=== PATIENT | male | born 1985 | race Two or more races ===

== ENCOUNTER 2017-12-08 05:12 | Emergency (ER) | payer OTHER ==
[2017-12-08 05:28] VITALS: BP 113/65; PULSE 75; TEMP 98.3; BMI 24.3
--- NOTE | 2017-12-08 05:41 | PDOC ---
History of Present Illness - General Chief Complaint: Rash Stated Complaint: RASH Time Seen by Provider: 12/08/17 05:27 - History of Present Illness Initial Comments: 12/08/17 05:41 32 yo M with no significant pmh who p/w rash. Patient with progressive widespread, utricarial, pruitic rash on torso, and BL UE and LE x 2 days. Spares palms/soles, with little face involvement. Also endorses dry, non productive cough x 3 days, and conjunctiva redness, and BL yellow discharge. Patient recently returned from [facility] 2 days ago and reports symptom onset following arrival to [place]. Recently seen at [facility] earlier this evening and prescribed oral Prednisone, Tobramyicn eye drops, and topical skin ointment. He denies recent changes in emollients, skin care, soaps, body washes, shampoo, bedding, clothing, detergents. Denies recent hiking, camping, outdoor activity. Denies F/C, N/V, vision change, dysphagia, hoarseness, neck swelling, tongue swelling, mucosal itching, wheezing, leg swelling/pain, CP, SOB, abdominal pain , diarrhea, constipation, BPR, urinary complaints, weakness, lightheadedness, sensory changes. PMHx: as noted above ROS: as noted above SHx: Denies Etoh, tobacco, or IVDA. Denies h/o allergies. No recent sick contacts. Patient at bedside with similar dry non productive cough. Past History - Past Medical History Allergies/Adverse Reactions: Allergies Allergy/AdvReac Type Severity Reaction Status Date / Time No Known Allergies Allergy Verified 12/08/17 05:26 Home Medications: Ambulatory Orders NK [No Known Home Medication] 12/08/17 - Suicide/Smoking/Psychosocial Hx Smoking History: Never smoked Have you smoked in the past 12 months: No Information on smoking cessation initiated: No Hx Alcohol Use: No Drug/Substance Use Hx: No Review of Systems - Review of Systems Comments:: 12/08/17 05:40 GENERAL/CONSTITUTIONAL: No fever or chills. No weakness. HEAD, EYES, EARS, NOSE AND THROAT: + eye d/c. No change in vision. No ear pain or discharge. No sore throat. CARDIOVASCULAR: No chest pain or shortness of breath RESPIRATORY:+ cough. No wheezing, or hemoptysis. GASTROINTESTINAL: No nausea, vomiting, diarrhea or constipation. GENITOURINARY: No dysuria, frequency, or change in urination. MUSCULOSKELETAL: No joint or muscle swelling or pain. No neck or back pain. SKIN: + rash NEUROLOGIC: No headache, vertigo, loss of consciousness, or change in strength/ sensation. ENDOCRINE: No increased thirst. No abnormal weight change HEMATOLOGIC/LYMPHATIC: No anemia, easy bleeding, or history of blood clots. ALLERGIC/IMMUNOLOGIC: No hives or skin allergy. *Physical Exam - Vital Signs Last Vital Signs Temp Pulse Resp BP Pulse Ox 98.3 F 75 20 113/65 100 12/08/17 05:26 12/08/17 05:26 12/08/17 05:26 12/08/17 05:12/08/17 05:26 - Physical Exam Comments: 12/08/17 05:40 GENERAL: Awake, alert, and fully oriented, in no acute distress HEAD: No signs of trauma, normocephalic, atraumatic EYES: + BL conjuctiva injection. PERRLA, EOMI, sclera anicteric. ENT: Auricles normal inspection, hearing grossly normal, nares patent, oropharynx clear without exudates. Moist mucosa NECK: Normal ROM, supple, no lymphadenopathy, JVD, or masses LUNGS: No distress, speaks full sentences, clear to auscultation bilaterally HEART: Regular rate and rhythm, normal S1 and S2, no murmurs, rubs or gallops, peripheral pulses normal and equal bilaterally. EXTREMITIES : Normal inspection, Normal range of motion, no edema. No clubbing or cyanosis. SKIN: Ertythematous, uritcarial rash involving trunk, and BL UE and LE. Warm, Dry, normal turgor, no rashes or lesions noted Medical Decision Making - Medical Decision Making 12/08/17 06:05 32 yo M with no significant pmh who p/w progressive widespread, utricarial rash , cough, and conjuctival irritation. VSS, AF, A&Ox3. NAD. Patient sx. most likely 2/2 viral exanthem. No evidence of anaphylaxis on physical exam. Absent mucosal /uvula/soft palate edema, stridor, wheezing, odynophagia/dysphagia, or other clinical s/s of respiratory compromise. ED Course: Diphenhydramine 50 mg 12/08/17 06:23 Patient stable for d/c with return precautions. Advised to f/u with PMD. *DC/Admit/Observation/Transfer Diagnosis at time of Disposition: Rash - Discharge Dispostion Condition at time of disposition: Stable Decision to Admit order: No - Referrals Referrals: Sonja Tejeda MD [Primary Care Provider] - - Patient Instructions Printed Discharge Instructions: DI for Rash Additional Instructions: Please return to the emergency department with any new or worsening symptoms or concerns. Please follow up with your primary care physician within 72 hours. Can take Diphehydramine 25 mg PO daily for symptom management. - Post Discharge Activity Forms/Work/School Notes: Back to Work - Attestations Physician Attestion: 12/08/17 05:40 I attest to the information provided in this note.
[2017-12-08] MEDS ORDERED: diphenhydrAMINE HCL 50 MG CAPSULE PO ONE (05:55)
--- NOTE | 2017-12-08 06:00 | PDOC ---
Attending Attestation - Resident Resident Name: Reece Correa - ED Attending Attestation I have performed the following: I have examined & evaluated the patient, The case was reviewed & discussed with the resident, I agree w/resident's findings & plan, Exceptions are as noted - HPI HPI: 12/08/17 05:55 32 M with no PMH presents to ED with 2 days of rash and cough. Pt states that his symptoms started with a cough. He then began to notice a rash on his arms. The rash did not itch at first but began to spread to his chest and back. He now reports severe itching all over. Pt also states that he woke up yesterday with crusting in both eyes. He went to urgent care yesterday and was prescribed abx eye drops for conjunctivitis as well as prednisone for possible allergic reaction. Pt states that he has been using both with no improvement. Pt denies any fevers. Denies headache or neck stiffness. Denies rash on palms, soles, or in mouth. Pt denies eating any new foods, denies taking any new medications. No new soaps or clothes. - Physicial Exam PE: 12/08/17 05:58 "GENERAL: Awake, alert, and fully oriented, in no acute distress. HEAD: No signs of trauma EYES: PERRLA, EOMI, + bilateral conjunctivitis ENT: Auricles normal inspection, hearing grossly normal, nares patent, oropharynx clear without exudates. Moist mucosa NECK: Nontender, no stepoffs, Normal ROM, supple, no lymphadenopathy, JVD, or masses LUNGS: Breath sounds equal, clear to auscultation bilaterally. No wheezes, and no crackles HEART: Regular rate and rhythm, normal S1 and S2, no murmurs, rubs or gallops ABDOMEN: Soft, nontender, normoactive bowel sounds. No guarding, no rebound. No masses EXTREMITIES: Normal range of motion, no edema. No clubbing or cyanosis. No cords, erythema, or tenderness NEUROLOGICAL: Cranial nerves II through XII intact. 5/5 strength and sensation in all extremities, Normal speech, normal gait, normal cerebellar function SKIN: diffuse morbilliform rash on arms, chest, back, trunk, legs, no palmar or oral lesions - Medical Decision Making 12/08/17 05:59 32 M with cough, conjunctivitis, and diffuse morbilliform rash. Likely viral exanthem. Pt with no fevers and otherwise well appearing. Allergic reaction is possible but pt with no new exposures. No evidence of airway compromise. - Benadryl - Supportive care - F/u PMD
[2017-12-08] MEDS ORDERED: diphenhydrAMINE HCL 25 MG CAPSULE (FP) PO ONE (06:12)
== END 2017-12-08 06:48 | disposition home or self-care (01) ==
LOC: JER 05:12
DX: L50.9 Urticaria, unspecified (principal)
CPT/HCPCS: 99281-25

== ENCOUNTER 2018-08-12 09:35 | Emergency (ER) | payer OTHER ==
[2018-08-12 09:45] VITALS: BP 119/69; PULSE 68; TEMP 98.3; BMI 20.8
[2018-08-12] MEDS ORDERED: diphenhydrAMINE HCL 25 MG CAPSULE (FP) PO ONE ×2 (10:29→10:30)
--- NOTE | 2018-08-12 10:33 | PDOC ---
History of Present Illness - General Chief Complaint: Rash Stated Complaint: ALLERGIC REACTION Time Seen by Provider: 08/12/18 10:12 History Source: Patient Exam Limitations: No Limitations - History of Present Illness Initial Comments: 08/12/18 10:29 Came for reevaluation of extending pruritic rash that started on hands and face , and is spreading up forearms now. States has some scratches to his back. States onset was approximately Tuesday or Tuesday. Was seen at an urgent care clinic who put him on some topical hydrocortisone cream 2.5% and a Medrol Dosepak pack for 5 days with minimal resolved. Denies fever, denies any swelling to lips tongue or airway, denies known exposure to any allergens and does not suffer from any environmental ALLERGIES. Works as a respiratory therapist at 2 hospitals but denies any known exposure to harsh chemicals or pathogens causing a rash. No one else at home is suffering from this rash. Timing/Duration: reports: getting worse Severity: Yes: mild, moderate Location: reports: extremities, hands Respiratory Risk Factors: reports: no cause identified Associated Symptoms: reports: denies symptoms Past History - Travel Traveled outside of the country in the last 30 days: No Close contact w/someone who was outside of country & ill: No - Past Medical History Allergies/Adverse Reactions: Allergies Allergy/AdvReac Type Severity Reaction Status Date / Time No Known Allergies Allergy Verified 12/08/17 05:26 Home Medications: Ambulatory Orders Diphenhydramine HCl [Benadryl -] 25 mg PO Q8H PRN #21 capsule 08/12/18 Hydrocortisone 2.5% Topical Cr [Anusol 2.5% Hc Cream -] 1 applic RC BID Methylprednisolone [Medrol Dose Angel] 4 mg PO ASDIR 08/12/18 COPD: No - Suicide/Smoking/Psychosocial Hx Smoking History: Never smoked Have you smoked in the past 12 months: No Hx Alcohol Use: No Drug/Substance Use Hx: No Review of Systems - Review of Systems Able to Perform ROS?: Yes Is the patient limited Tunisian proficient: Yes Constitutional: Yes: Symptoms Reported, See HPI. No: Fever, Loss of Appetite, Malaise HEENTM: Yes: See HPI. No: Symptoms Reported Respiratory: Yes: See HPI. No: Symptoms reported, Cough Integumentary: Yes: Symptoms Reported, See HPI, Pruritus (to forearms, starting on hands and migrating up past elbows. Has small patch to right shoulder and resolved to face), Rash All Other Systems: Reviewed and Negative *Physical Exam - Vital Signs Last Vital Signs Temp Pulse Resp BP Pulse Ox 98.3 F 68 18 119/69 97 08/12/18 09:43 08/12/18 09:43 08/12/18 09:43 08/12/18 09:43 08/12/18 09:43 - Physical Exam General Appearance: Yes: Nourished, Appropriately Dressed, Apparent Distress, Mild Distress HEENT: positive: ARPITA, Normal ENT Inspection, Normal Voice, TMs Normal, Pharynx Normal, Other (no swelling to lips, tongue, airway patent. No evidence of angioedema). negative: Nasal Congestion Neck: positive: Supple. negative: Tender, Lymphadenopathy (R), Lymphadenopathy (L) Respiratory/Chest: positive: Lungs Clear, Normal Breath Sounds. negative: Wheezing Musculoskeletal: positive: Normal Inspection Extremity: positive: Normal Capillary Refill, Normal Inspection. negative: Tender Integumentary: positive: Normal Color, Rash (mildly erythematous macular rash with erythematous palms of hand and mildly keratinized/excoriated with some eczematous appearance to hands and wrist versus contact dermatitis. 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 NML intact, Fully Oriented, Alert, Normal Mood/ Affect, Normal Response, Motor Strength 5/5 Moderate Sedation - Procedure Monitoring Vital Signs: Procedure Monitoring Vital Signs Temperature 98.3 F 08/12/18 09:43 Pulse Rate 68 08/12/18 09:43 Respiratory Rate 18 08/12/18 09:43 Blood Pressure 119/69 08/12/18 09:43 O2 Sat by Pulse Oximetry (%) 97 08/12/18 09:43 Progress Note - Progress Note Progress Note: Contact dermatitis versus eczema, will have complete Medrol Angel, add antihistamine for itching, and encourage hydrophilic cream use *DC/Admit/Observation/Transfer Diagnosis at time of Disposition: Contact dermatitis and eczema - Discharge Dispostion Disposition: HOME Condition at time of disposition: Stable Decision to Admit order: No - Prescriptions Prescriptions: Diphenhydramine HCl [Benadryl -] 25 mg PO Q8H PRN #21 capsule PRN Reason: sneezing/cough - Referrals Referrals: Zoraida Pitt MD [Primary Care Provider] - Valencia Cole MD [Staff Physician] - - Patient Instructions Printed Discharge Instructions: DI for Contact Dermatitis Additional Instructions: Rest, keep cool and dry- avoid strenuous activity or hot /humid environments Less hot showers, no abrasive soaps May use heavy creams like Eucerin or Cetaphil to keep skin moist May apply Aveeno, calamine lotion, [id number] hydrocortisone creams as needed for symptoms May use Benadryl at night for antihistamine, Zyrtec/ Tiffany or Claritin for daytime antihistamine use to help with itching Try to identify cause for rash and avoid exposures Followup with PMD in one week if no resolution Make appointment with bag machine tender for evaluation when possible - Post Discharge Activity Forms/Work/School Notes: Back to Work
== END 2018-08-12 10:35 | disposition home or self-care (01) ==
LOC: JERFT 09:35
DX: L25.9 Unspecified contact dermatitis, unspecified cause (principal)
CPT/HCPCS: 99281-25